=== PATIENT | male | born 1975 | race Caucasian/White ===

== ENCOUNTER 2023-03-22 02:13 | Day surgery (SDC) | payer OTHER, SELFPAY ==
--- NOTE | 2023-03-13 14:08 | PC.NURSE ---
Addendum entered by Berta Arrieta RN 03/13/23 14:13: PT INSTRUCTED NOT TO USE CHEWING TOBACCO THE MORNING OF SURGERY Original Note: Report to the Outpatient Waiting Room, entrance under the [place] [facility] located off [facility], at time _1045_ on date _03/22/23. Planned Procedure Time: __1245_. Time changes happen often and if your time is changed the preop area will call you the afternoon before. - You and your visitor will be asked to self-screen and do not enter if you have any COVID symptoms. - A mask is optional within the hospital at this time. Patients may have clear liquids (water, carbonated beverages, clear teas, apple juice) until 3 hours prior to surgery with a maximum of 20 ounces. - No food from midnight until time of surgery - Infants may have breast milk until 4 hours before surgery, infant formula 6 hours prior to surgery. - Children will be allowed to drink immediately following surgery. If applicable, please bring a bottle or sippy cup to assist with drinking. Juice, water, soda, and popsicles are readily available. For infants on formula, please bring formula the day of surgery. Pacifiers are allowed. Take the following medications with a SIP of water the morning of surgery: NONE DO NOT STOP ANY OF YOUR OTHER PRESCRIPTION MEDICATIONS PRIOR TO SURGERY ?EXCEPT THE FOLLOWING Medications to discontinue per physician NONE Date to take last dose Please no make-up, nail kyrgyz, hairspray, perfume, deodorant, or body powder the day of surgery. No jewelry (including any body piercings) or valuables the day of surgery, leave them at home. Please take a shower or bath the night before, or the morning of, surgery with an antibacterial soap. Wear comfortable, loose fitting clothing. Children are encouraged to wear pajamas. - Jewelry must be removed prior to entering the operating room. Rings and piercings that are not removed may be cut off. - The hospital will not accept responsibility for valuables. - Please leave all valuables, including medications, at home the day of surgery. If you are going home after surgery, a licensed driver service technician must drive you home. - NO public transportation without another adult if you receive anesthesia. - We recommend that an adult stay with you for 24 hours following discharge. - We also recommend that you do not drive, make important decision, drink alcoholic beverages, or take any drugs that were not prescribed by your health care provider for at least 24 hours after your discharge time. For Pediatric surgeries, we recommend two adults accompany the child home. Follow any additional instructions given to you from your surgeon. If you or anyone in your household have experienced Covid symptoms in the past week, please notify your surgeon or the nurse liaison at the phone number below for possible testing. Telephone instructions given to _PATIENT_and asked if any additional questions and then verbalized understanding. Patient advised to call surgeon office or pre surgery nurse liaison [phone] if any additional questions.
--- NOTE | 2023-03-22 06:25 | WPDHPUPDATE1 ---
History and Physical Update Update Date/Time: 03/22/23 06:25 History and Physical has been reviewed, including an updated exam of the patient. There are NO changes in the patient's condition. Risks, benefits, and alternatives have been discussed and questions answered. Patient agrees to proceed with procedure.
[2023-03-22 10:34] VITALS: BP 168/86; PULSE 74; RESP 20; TEMP 37.2; O2SAT 100
[2023-03-22 10:42] VITALS: BMI 36.0
[2023-03-22] MEDS: LACTATED RINGERS 1,000 ML 30 ML IV CONT (11:01)
[2023-03-22] MEDS: ceFAZolin 3 GM/D5W 100 ML 100 ML IVPB (11:50)
[2023-03-22] MEDS: LIDOCAINE HCL 2% GEL UROJET 10 ML PKG MUCOUS MEM (12:09)
--- NOTE | 2023-03-22 12:12 | P.OP_ITS ---
Procedure Note - Detailed Date of Procedure 03/22/23 Pre-op Diagnosis Urethral Stricture Post-op Diagnosis Same Procedure Performed Cystoscopy, urethral dilatation Surgeon Deepak Kirk MD Anesthesia MAC Description of Procedure Patient is brought to the operative suite was prepped and draped in routine nicole rile fashion while in a dorsal lithotomy position after the administration of systemic sedation per the anesthesia department. Cystoscopy was undertaken with a 19 F rigid cystoscope. Has a wide caliber bulbous urethral stricture. He has a very high median bar without significant lateral lobe hyperplasia. The bladder shows slight trabeculation. There was no intravesical foreign body or neoplasm. Is a single orthotopic ureteral orifice bilaterally. I dilated the stricture from 16 F to 20 4 F with Mir sounds. Bladder was emptied with a 16F coude tip catheter. Patient tolerated the procedure well was taken recovery room good condition. Pathology None sent Complications No immediate complications Disposition PACU
[2023-03-22 12:17] VITALS: BP 133/77; PULSE 73; RESP 14; O2SAT 95
[2023-03-22 12:45] VITALS: BP 131/82; PULSE 69; RESP 14; O2SAT 99
[2023-03-22 13:05] VITALS: BP 124/78; PULSE 64; RESP 14
== END 2023-03-22 13:14 | disposition home or self-care (01) ==
PROVIDERS: Visit Provider Urology
PROC: 0T7D8ZZ Dilation of Urethra, Via Natural or Artificial Opening Endoscopic (ICD-10-PCS; CPT 52281; principal; 2023-03-22 12:45)
DX: N35.912 Unspecified bulbous urethral stricture, male (principal); N32.89 Other specified disorders of bladder; R35.1 Nocturia; R35.0 Frequency of micturition
CPT/HCPCS: 52281; J0690; J2250; J2405; J2704; J3010; J7120

== ENCOUNTER 2024-04-11 07:44 | Day surgery (SDC) | payer OTHER, SELFPAY ==
[2024-04-11] VITALS (11 sets, daily range): BP systolic 114–144; BP diastolic 66–90; PULSE 57–75; RESP 14–18; TEMP 36.3–36.9; O2SAT 96–100; BMI 36.6; BMI 35.9
--- NOTE | ~2024-04-11 | XR_ITS ---
EXAMINATION: XR abdomen/kub 1V DATE: 04/11/2024 09:37 INDICATION: Planned shockwave lithotripsy. TECHNIQUE: A supine view of the abdomen on 3 radiographs was obtained. COMPARISON: None. FINDINGS: 8 mm stone likely at the left ureteropelvic junction which projects near the lateral tip of the left transverse process of L3. There are few tiny splenic calcific lesions consistent with old granulomato us disease. 3 mm phlebolith in the deep right hemipelvis. No dilated loops of bowel to suggest obstru ction. Visualized lung bases are clear with no pleural effusion. Heart size is normal. Decreased bila teral femoral head/neck offset. Bones are otherwise unremarkable. IMPRESSION: 1. 8 mm stone likely at the left ureteropelvic junction. Reviewed, dictated and finalized at location B. 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
--- NOTE | 2024-04-11 07:44 | WPDHPUPDATE1 ---
History and Physical Update Update Date/Time: 04/11/24 07:44 History and Physical has been reviewed, including an updated exam of the patient. There are NO changes in the patient's condition. Risks, benefits, and alternatives have been discussed and questions answered. Patient agrees to proceed with procedure.
--- NOTE | 2024-04-11 08:14 | PC.NURSE ---
Report to the Outpatient Waiting Room, entrance under the green pavilion located off [facility], at time ___9:30AM____ on date ___04/11/24____. Planned Procedure Time: ___11:30AM .? Time changes happen often and if your time is changed the preop area will call you the afternoon before. - You and your visitor will be asked to self-screen and do not enter if you have any COVID symptoms. Please call surgeon if you need to reschedule. - A mask is optional within the hospital at this time. Patients may have clear liquids (water, carbonated beverages, clear teas, apple juice) until 3 hours prior to surgery with a maximum of 20 ounces. - No food from midnight until time of surgery and no smoking. This includes no chewing gum, candy or mints. Take only the following medications with a SIP of water on the morning of surgery: NONE DO NOT STOP ANY OF YOUR OTHER PRESCRIPTION MEDICATIONS PRIOR TO SURGERY EXCEPT THE FOLLOWING Medications to discontinue per physician ____HOLD ALL VITAMINS/SUPPLEMENTS STARTING NOW PER DR MONTOYA. Please no make-up, nail lao, hairspray, perfume, deodorant, or body powder the day of surgery.? No jewelry (including any body piercings) or valuables the day of surgery, leave them at home.? Please take a shower or bath the night before, or the morning of, surgery with an antibacterial soap.? Wear comfortable, loose fitting clothing.? - Jewelry must be removed prior to entering the operating room.? Rings and piercings that are not removed may be cut off. - The hospital will not accept responsibility for valuables.? - Please leave all valuables, including medications, at home the day of surgery. If you are going home after surgery, a licensed tour bus driver/guide must drive you home.? - NO public transportation without another adult if you receive anesthesia. - We recommend that an adult stay with you for 24 hours following discharge. - We also recommend that you do not drive, make important decision, drink alcoholic beverages, or take any drugs that were not prescribed by your health care provider for at least 24 hours after your discharge time. Follow any additional instructions given to you from your surgeon. Telephone instructions given to PATIENT and asked if any additional questions and then verbalized understanding. Patient advised to call surgeon office or pre surgery nurse liaison [phone] if any additional questions.
[2024-04-11] MEDS: LACTATED RINGERS 1,000 ML 30 ML IV CONT (10:00)
--- NOTE | 2024-04-11 10:07 | WPDANESEPPF ---
Anes - Initial Pre Proc Eval Procedure: Operation Date: 04/11/24 11:30 Proposed Procedures p Left Extracorporeal Shock Wave Lithotripsy - Deepak Kirk MD Date/Time: 04/11/24 10:07 Surgeon: Deepak Kirk MD Pre Op Diagnosis: left ureteral stone Patient Data Age: 49 Gender: M Height: 1.85 m Weight: 126 kg Allergies Allergy/AdvReac Type Severity Reaction Status Date / Time No Known Allergies Allergy Verified 04/11/24 07:50 Home Medications Medication Instructions Recorded Confirmed Type escitalopram oxalate 20 mg tablet 20 mg PO HS 03/13/23 04/11/24 History (Lexapro) cholecalciferol (vitamin D3) 50 50 mcg PO DAILY 04/11/24 04/11/24 History mcg (2,000 unit) capsule finasteride 5 mg tablet 5 mg PO DAILY 04/11/24 04/11/24 History multivitamin 1 tablet PO DAILY 04/11/24 04/11/24 History omega-3 fatty acids 300 mg capsule 1,500 mg PO DAILY 04/11/24 04/11/24 History testosterone cypionate 200 mg/mL 200 mg IM MONTHLY 04/11/24 04/11/24 History intramuscular oil Laboratory Tests 04/11/24 04/11/24 09:24 09:52 PT Pending INR Pending APTT Pending Urine Color Pending Urine Appearance Pending Urine pH Pending Ur Specific [place] Pending Urine Protein Pending Urine Glucose (UA) Pending Urine Ketones Pending Ur Blood (Man) Pending Urine Nitrate Pending Urine Bilirubin Pending Urine Urobilinogen Pending Leukocyte Esterase Rfl Pending Patient hx anesthesia problems: none Family hx anesthesia problems: none Results Review: All pre-operative results and documents have been reviewed as part of the pre-operative evaluation. [facility] Social History Social History Smoking status: Never smoker Smokeless tobacco user: chewing tobacco Additional smoking assessment comments: USED FOR 1 YR Alcohol intake: current Drinks per week: 2 Living arrangements: with family Additional living arrangements comments: SPOUSE Spiritual care concerns: No Anes - Eval Final PreProcedure Day of Procedure 04/11/24 10:07 Patient weight: obese Heart: regular rate and rhythm Lungs: clear to auscultation Airway: Mallampati scale class II Neurological: alert and oriented Last oral intake: >/= 8 hours ASA classification: II Emergent: no Anesthetic plan: proceed Anesthesia type and monitoring: general LMA and standard monitoring Results Review: All pre-operative results and documents have been reviewed as part of the pre-operative evaluation. Informed Consent: The patient's anesthetic plan and its attendant risks and benefits were discussed with the patient/family/POA. Questions were solicited and answers provided to the satisfaction of the patient/family/POA.
[2024-04-11 10:08] LABS: Add Urine Microscopic? YES; Appearance Urine Clear (Clear); Bacteria Urine None Seen /hpf; Bilirubin Urine Negative (Negative); Blood Urine Negative (Negative); Color Urine Yellow (Yellow); Glucose Urine UA Negative (Negative); Ketones Urine Negative (Negative); Leukocyte Esterase Ur Trace LEU/UL (Negative); Nitrate Urine Negative (Negative); Non Pathogenic Casts 0-2; Protein Urine Negative (Negative); RBC Urine 0-2 /hpf (0-2); Specific Grav Ur 1.013 (1.001-1.035); Squamous Epithelial Cell Urine None Seen /hpf (Few); Urobilinogen Urine 0.2 mg/dL (<2.0); WBC Urine 0-5 /hpf (0-3); pH Urine 5.5 (5.0-9.0)
[2024-04-11 10:17] LABS: INR 0.9; Prothrombin Time 12.6 Seconds (11.1-14.7)
[2024-04-11 10:18] LABS: Partial Thromboplastin Time 28.8 Seconds (22.3-36.8)
[2024-04-11] MEDS: ceFAZolin 2 GM/D5W 50 ML 2 GM/50 ML BAG IVPB (10:25)
[2024-04-11] MEDS: ceFAZolin SODIUM 1 GM VIAL IV PUSH (10:25)
--- NOTE | 2024-04-11 10:54 | W.PM.PROC2 ---
Procedure Note - Detailed Date of Procedure 04/11/24 Pre-op Diagnosis left ureteral stone Post-op Diagnosis Same Procedure Performed Left ESWL Surgeon Deepak Kirk MD Anesthesia General Description of Procedure The patient was brought to the operative suite where he was placed in the supine position on the Dornier lithotripsy table. The focal point of the lithotripter was placed at a 5mm left mid-ureteral calculus. A total of 3000 shocks were delivered at a power setting of 5. There appeared to be good fragmentation of the stone. The patient tolerated the procedure well and was taken to the recovery room in good condition.
--- NOTE | 2024-04-15 06:10 | P.HP_ITS ---
History of Present Illness History of Present Illness Consent: Risks, benefits, and alternatives have been discussed and questions answered. Patient agrees to proceed with procedure. Chief complaint: left ureteral stone Narrative: Mahesh Gong is a 49 year old male With a history of urolithiasis. He was seen in the outside emergency department were imaging for left flank pain revealed a 5 mm left proximal ureteral stone. We undertook a telehealth visit a nd he was scheduled for left ESWL. He is aware the risk including, not limited to, adverse cardiopulmonary events, need for additional procedures, hematuria and perinephric hematoma. Review of Systems Review of Systems: All systems reviewed & are unremarkable except as noted in HPI and below PMFSH Social History Social History Smoking status: Never smoker Smokeless tobacco user: chewing tobacco Additional smoking assessment comments: USED FOR 1 YR Alcohol intake: current Drinks per week: 2 Living arrangements: with family Additional living arrangements comments: SPOUSE Spiritual care concerns: No Meds Home Medications and Allergies Home Medications Medication Instructions Recorded Confirmed Type escitalopram oxalate 20 mg tablet 20 mg PO HS 03/13/23 04/11/24 History (Lexapro) cholecalciferol (vitamin D3) 50 50 mcg PO DAILY 04/11/24 04/11/24 History mcg (2,000 unit) capsule finasteride 5 mg tablet 5 mg PO DAILY 04/11/24 04/11/24 History hydrocodone 5 mg-acetaminophen 325 1 - 2 tablet PO Q6H PRN pain #20 04/11/24 Rx mg tablet tabs multivitamin 1 tablet PO DAILY 04/11/24 04/11/24 History omega-3 fatty acids 300 mg capsule 1,500 mg PO DAILY 04/11/24 04/11/24 History testosterone cypionate 200 mg/mL 200 mg IM MONTHLY 04/11/24 04/11/24 History intramuscular oil Allergies Allergy/AdvReac Type Severity Reaction Status Date / Time No Known Allergies Allergy Verified 04/11/24 07:50 Exam Const: General: no acute distress Resp: Effort & Inspection: normal respiratory effort GI: Inspection: non-distended GI Palp: No abdominal tenderness and No Guarding due to palpation present (GI) Auscultation: normal bowel sounds Assessment and Plan Assessment and plan (1) Left ureteral stone: Code(s): N20.1 - Calculus of ureter Status: Acute Assessment and Plan: * Left ESWL
== END 2024-04-11 13:58 | disposition home or self-care (01) ==
PROVIDERS: Visit Provider Urology
PROC: (CPT 50590; principal; 2024-04-11 11:30)
DX: N20.1 Calculus of ureter (principal); E66.9 Obesity, unspecified; Z68.36 Body mass index [BMI] 36.0-36.9, adult
CPT/HCPCS: 50590; 36415; 74018; 81001; 85610; 85730; J0690; J1100; J2003; J2250; J2405; J2704; J3010; J7120

== ENCOUNTER 2024-04-25 14:20 | Outpatient (CLI) | payer OTHER, SELFPAY ==
--- NOTE | ~2024-04-25 | XR_ITS ---
XR abdomen/kub 1V DATE: 04/25/2024 14:50 INDICATION: Left ureteral stone surgery 2 weeks ago TECHNIQUE: 2 AP supine views COMPARISON: 04/11/2024 KUB FINDINGS: Approximately 6 mm calcification overlies the left ureter at approximately the L3 level, po ssibly a proximal left ureteral calculus. Noncontrast CT abdomen pelvis examination would be more acc urate and sensitive for detection of urinary tract calculi. No evidence of bowel obstruction. The psoas shadows are intact. The lung bases are clear. Included skeletal structures are unremarkable. IMPRESSION: Possible proximal left ureteral calcified calculus Reviewed, dictated and finalized at Location A. Reviewed, dictated and finalized at location A. [employer] SALES MANAGER
== END 2024-04-25 14:21 | disposition home or self-care (01) ==
PROVIDERS: Visit Provider Urology
DX: N20.1 Calculus of ureter (principal)
CPT/HCPCS: 74018

== ENCOUNTER 2025-01-06 11:14 | Outpatient (CLI) | payer OTHER, SELFPAY ==
--- NOTE | ~2025-01-06 | XR_ITS ---
EXAM/PROCEDURE: XR abdomen/kub 1V - 01/06/2025 11:30 CDT HISTORY: 49 years old Male with Left ureteral stone COMPARISON: None available. TECHNIQUE: AP view(s) of the abdomen. FINDINGS: The bowel gas pattern is normal. There is no evidence for obstruction. No free intraperitoneal air is identified on this supine radiograph. The visualized soft tissue shadows are unremarkable. No gross bony abnormalities are seen. Visualized portions of lung bases are clear. IMPRESSION: No acute process. Reviewed, dictated and finalized at location A. IMPRESSION: No acute process.
== END 2025-01-06 11:15 | disposition home or self-care (01) ==
PROVIDERS: PCP Urology; Visit Provider Urology
DX: N20.1 Calculus of ureter (principal)
CPT/HCPCS: 74018